=== PATIENT | female | born 2000 | race Caucasian/White ===

== ENCOUNTER 2019-08-05 17:32 | Emergency (ER) | payer MEDICAID, OTHER ==
[2019-08-05] MEDS: AZITHROMYCIN 250 MG TAB PO (19:28)
[2019-08-05] MEDS: CEFTRIAXONE 250 MG INJ IM (19:28)
== END 2019-08-05 20:33 | disposition home or self-care (01) ==
LOC: FTE 17:32
DX: Z20.2 Contact with and (suspected) exposure to infections with a predominantly sexual mode of transmission (principal); J45.909 Unspecified asthma, uncomplicated
CPT/HCPCS: 87591; 96372; 99284-25